=== PATIENT | female | born 1985 | race Caucasian/White ===

== ENCOUNTER 2022-04-12 12:08 | Emergency (ER) | payer SELFPAY ==
[2022-04-12] MEDS ORDERED: Lidocaine 1% 10 ML MDV INJECT ONE (12:59)
[2022-04-12] MEDS ORDERED: Lidocaine/EPINEPHrine/Tetracaine Soln 1 ML TOP ONE (12:59)
== END 2022-04-12 14:30 | disposition home or self-care (01) ==
LOC: JD.ED 12:08
DX: N76.4 Abscess of vulva (principal); Z88.0 Allergy status to penicillin; Z88.5 Allergy status to narcotic agent; Z88.8 Allergy status to other drugs, medicaments and biological substances
CPT/HCPCS: 56405; 99282